=== PATIENT | male | born 1985 | race Caucasian/White ===

== ENCOUNTER 2019-11-23 10:14 | Emergency (ER) | payer OTHER ==
[~2019-11-23] VITALS: Ht 180.3 cm; Wt 83.7 kg
[2019-11-23 10:19] VITALS: BP 137/82
[2019-11-23] MEDS ORDERED: KETOROLAC 30 MG/1 ML ONE (10:57)
[2019-11-23] MEDS ORDERED: DIAZEPAM 5 MG TABLET ONE (10:57)
[2019-11-23] MEDS ORDERED: KETOROLAC 30 MG/1 ML IM ONE (11:00)
[2019-11-23] MEDS ORDERED: DIAZEPAM 5 MG TABLET PO ONE (11:00)
== END 2019-11-23 11:32 | disposition home or self-care (01) ==
LOC: ED 11:00
DX: S39.012A Strain of muscle, fascia and tendon of lower back, initial encounter (principal); X58.XXXA Exposure to other specified factors, initial encounter; Y93.89 Activity, other specified; Y92.89 Other specified places as the place of occurrence of the external cause; Y99.8 Other external cause status
CPT/HCPCS: 96372; 99283; J1885